=== PATIENT | female | born 1965 | race Caucasian/White ===

== ENCOUNTER → 2017-09-16 | Outpatient (CLI) | payer BC | LOC: RAD 15:37 | PROVIDERS: ATTEND Nurse Practitioner | DX: Z12.31 Encounter for screening mammogram for malignant neoplasm of breast (principal) | CPT/HCPCS: 77067 ==

== ENCOUNTER → 2018-09-19 | Outpatient (CLI) | payer BC ==
--- NOTE | 2018-09-20 07:59 | Diagnostic Imaging Report ---
Digital mammogram bilateral screening with 3 D tomosynthesis This study was compared to the prior exams of 09/16/2017, 09/15/2016, and 08/07/2015. At this time, there are no current complaints. The current study was also evaluated with a Computer Aided Detection (CAD) system. FINDINGS: The fibroglandular tissue in both breasts is dense. This does limit the sensitivity of this exam. Overall, there does not appear to have been any significant change when compared to the prior study. No primary or secondary sign of malignancy is noted. IMPRESSION: There is no radiographic evidence for malignancy. ACR BI-RADS Category 1: Negative. Result letter will be mailed to the patient. Note: At least 10% of breast cancer is not imaged by mammography. Dictated by: Dictated on workstation # [id number]
== END ==
LOC: RAD 07:08
PROVIDERS: ATTEND Nurse Practitioner
DX: Z12.31 Encounter for screening mammogram for malignant neoplasm of breast (principal)
CPT/HCPCS: 77067

== ENCOUNTER → 2019-09-20 | Outpatient (CLI) | payer BC ==
--- NOTE | 2019-09-20 08:53 | Diagnostic Imaging Report ---
INDICATION: Routine screening. COMPARISON: 09/19/2018 and 09/16/2017. TECHNIQUE: 2D and 3D bilateral screening mammography was performed with CAD. FINDINGS: Both breasts are heterogeneously dense, limiting the sensitivity of mammography. The parenchymal pattern appears stable. No mass or malignant appearing microcalcifications are seen. The axillae are unremarkable. IMPRESSION: No mammographic features suspicious for malignancy are identified. ACR BI-RADS Category 1: Negative. Result letter will be mailed to the patient. Note: At least 10% of breast cancer is not imaged by mammography. Dictated by: Dictated on workstation # [id number]
== END ==
LOC: RAD 07:07
PROVIDERS: ATTEND Nurse Practitioner
DX: Z12.31 Encounter for screening mammogram for malignant neoplasm of breast (principal)
CPT/HCPCS: 77067

== ENCOUNTER → 2020-05-28 | Outpatient (CLI) | payer BC ==
--- NOTE | 2020-05-28 16:20 | Diagnostic Imaging Report ---
PROCEDURE: US Non-ob pelvis comp/trans. TECHNIQUE: Multiple real-time grayscale images were obtained of the pelvis in various projections endovaginally. Transabdominal imaging was also performed. INDICATION: Dysfunctional uterine bleeding. COMPARISON: There are no prior studies available for comparison. The uterus is prominent measuring 9.1 x 4.7 x 6.2 cm. The endometrial lining is slightly thickened measuring 8 mm (normal for postmenopausal patient 5 mm or less). This finding is nonspecific. Clinical follow-up is recommended. If the patient is indeed postmenopausal, then an endometrial biopsy should be considered. There is no focal mass involving the uterus to suggest a fibroid. Both ovaries are identified. There are two cysts arising from the right ovary. The larger of the two measures 2.5 x 1.8 x 2.4 cm. The other cyst measures less than 2 cm in size. The left ovary is generally unremarkable. There is good blood flow to each ovary. There is no pelvic mass or free fluid collection evident. IMPRESSION: 1. The uterus is prominent and the endometrial lining is slightly thickened. Recommendations as above. 2. There are two benign-appearing cysts associated with the right ovary. There is no acute pelvic abnormality noted otherwise. Dictated by: Dictated on workstation # [id number]
== END ==
LOC: RAD 12:00
PROVIDERS: ATTEND Surgery
DX: N83.201 Unspecified ovarian cyst, right side (principal); R93.89 Abnormal findings on diagnostic imaging of other specified body structures
CPT/HCPCS: 76830; 76856

== ENCOUNTER → 2020-09-24 | Outpatient (CLI) | payer BC ==
--- NOTE | 2020-09-24 09:18 | Diagnostic Imaging Report ---
INDICATION: Screening. The current study was also evaluated with a Computer Aided Detection (CAD) system. 3-D Tomographic imaging was also performed. Comparison made with prior examination from 09/20/2019, 09/19/2018, 09/16/17 FINDINGS: The fibroglandular tissue is heterogeneously dense bilaterally. There are a few benign type calcifications. There is no dominant mass, spiculated lesion or suspicious calcifications identified. The skin, nipples and axilla are unremarkable IMPRESSION: Category 2 benign ACR BI-RADS Category 2: Benign findings. Result letter will be mailed to the patient. Note: At least 10% of breast cancer is not imaged by mammography. Dictated by: Dictated on workstation # [id number]
== END ==
LOC: RAD 07:30
PROVIDERS: ATTEND Nurse Practitioner
DX: Z12.31 Encounter for screening mammogram for malignant neoplasm of breast (principal)
CPT/HCPCS: 77063; 77067

== ENCOUNTER → 2021-09-29 | Outpatient (CLI) | payer BC ==
--- NOTE | 2021-09-29 14:23 | Diagnostic Imaging Report ---
EXAMINATION: Digital mammogram bilateral screening with CAD. INDICATION: Screening. COMPARISON: This study was compared to the prior exams of 09/24/2020, 09/20/2019, and 09/19/2018. PERSONAL HISTORY: At this time, there are no current complaints. FINDINGS: The fibroglandular tissue in both breasts is dense. This does limit the sensitivity of this exam. Overall, there does not appear to have been any significant change when compared to the prior study. No primary or secondary sign of malignancy is noted. IMPRESSION: There is no radiographic evidence for malignancy. ACR BI-RADS Category 1: Negative. Result letter will be mailed to the patient. Note: At least 10% of breast cancer is not imaged by mammography. Dictated by: Dictated on workstation # [id number]
== END ==
LOC: RAD 07:30
PROVIDERS: ATTEND Nurse Practitioner
DX: Z12.31 Encounter for screening mammogram for malignant neoplasm of breast (principal)
CPT/HCPCS: 77063; 77067

== ENCOUNTER → 2022-09-30 | Outpatient (CLI) | payer BC ==
--- NOTE | 2022-09-30 14:16 | Diagnostic Imaging Report ---
EXAMINATION: 3D bilateral screening mammogram with CAD. INDICATION: Screening. COMPARISON: This study was compared to the prior exams of 09/29/2021, 09/24/2020, and 09/20/2019. PERSONAL HISTORY: At this time, there are no current complaints. FINDINGS: The fibroglandular tissue in both breasts is heterogeneously dense. This does limit the sensitivity of this exam. When compared to the previous study there does not appear to have been any significant change. There is no primary or secondary sign of malignancy noted. IMPRESSION: There is no evidence for malignancy. ACR BI-RADS Category 1: Negative. Result letter will be mailed to the patient. Note: At least 10% of breast cancer is not imaged by mammography. Dictated by: Dictated on workstation # [id number]
== END ==
LOC: RAD 08:00
PROVIDERS: ATTEND Surgery
DX: Z12.31 Encounter for screening mammogram for malignant neoplasm of breast (principal)
CPT/HCPCS: 77063; 77067

== ENCOUNTER → 2023-10-04 | Outpatient (CLI) | payer BC ==
--- NOTE | 2023-10-04 14:57 | Diagnostic Imaging Report ---
EXAMINATION: 3D bilateral screening mammogram with CAD. INDICATION: Screening. COMPARISON: This study was compared to the prior exams of 09/30/2022 and 09/29/2021. PERSONAL HISTORY: At this time, there are no current complaints. FINDINGS: The breasts are heterogenously dense which may obscure small masses. When compared to the previous study, there does not appear to have been any significant change. There is no primary or secondary sign of malignancy noted. IMPRESSION: There is no evidence for malignancy. ACR BI-RADS Category 1: Negative. Result letter will be mailed to the patient. Note: At least 10% of breast cancer is not imaged by mammography. Dictated by: Dictated on workstation # [id number]
== END ==
LOC: RAD 07:06
PROVIDERS: ATTEND Nurse Practitioner
DX: Z12.31 Encounter for screening mammogram for malignant neoplasm of breast (principal)
CPT/HCPCS: 77063; 77067